=== PATIENT | male | born 1975 | race Asian ===

== ENCOUNTER 2024-09-20 05:28 | Inpatient (IN) | payer OTHER ==
[2024-09-20] VITALS (11 sets, daily range): BP systolic 104–132; BP diastolic 65–85; PULSE 71–97; RESP 14–18; TEMP 97.6–98.6; O2SAT 94–97
[~2024-09-20] VITALS: Ht 165.1 cm; Wt 75.0 kg
[2024-09-20 07:26] LABS: BASOPHILS % (AUTO) 0.1 % (0-1); EOSINOPHILS % (AUTO) 0 % (0-6); HEMATOCRIT 44.6 % (42.0-52.0); HEMOGLOBIN 14.9 g/dl (14.0-17.9); LYMPHOCYTES # (AUTO) 0.2 X10'3 (1.1-4.8); LYMPHOCYTES % (AUTO) 3.9 % (21-51); MEAN CORPUSCULAR HEMOGLOBIN 30.7 PG (27.0-31.0); MEAN CORPUSCULAR HGB CONC 33.4 g/dL (33.0-36.5); MONOCYTES # (AUTO) 0.7 X10'3 (0-0.9); MONOCYTES % (AUTO) 10.5 % (2-12); NEUTROPHILS # (AUTO) 5.5 X10'3 (1.8-7.7); NEUTROPHILS % (AUTO) 85.5 % (42-75); PLATELET COUNT 178 X10'3 (140-440); RED BLOOD COUNT 4.85 X10'6 (4.70-6.10); RED CELL DISTRIBUTION WIDTH 12.9 % (11.5-14.5); WHITE BLOOD COUNT 6.4 X10'3 (4.5-11.0)
[2024-09-20] MEDS: acetaminophen 1,000mg/100ml IV 100 ML IV ONE (07:38)
[2024-09-20] MEDS: pantoprazole 40 MG vial IV STA (07:39)
[2024-09-20] MEDS ORDERED: acetaminophen 1,000mg/100ml IV 100 ML IV ONE (08:00)
[2024-09-20 08:08] LABS: ALBUMIN 3.8 G/DL (3.4-5.0); ANION GAP 10 (8-16); BLOOD UREA NITROGEN 10 MG/DL (7-18); CALCIUM 8.6 MG/DL (8.5-10.1); CHLORIDE 103 MMOL/L (99-107); CREATININE 0.91 MG/DL (0.60-1.10); GLUCOSE 154 MG/DL (70-104); MAGNESIUM 1.9 MG/DL (1.5-2.4); POTASSIUM 3.7 MMOL/L (3.5-5.1); SODIUM 139 MMOL/L (135-145); TOTAL CARBON DIOXIDE 25.6 MMOL/L (24-32); eCRCL 84 ML/MIN; eGFR 88 ML/MIN
[2024-09-20] MEDS ORDERED: magnesium sulf-water 4G/100mL 100 ML IV PRN (08:20)
[2024-09-20] MEDS ORDERED: HYDROmorphone inj. 0.5 MG/0.5 ML DISP.SYRIN IV PRN (08:20)
[2024-09-20] MEDS ORDERED: HYDROmorphone/PF 0.2 MG/ML SYRINGE IV PRN (08:20)
[2024-09-20] MEDS ORDERED: magnesium sulf-water 2g/50mL 50 ML IV PRN (08:20)
[2024-09-20] MEDS ORDERED: metoclopramide 5 mg/ml inj IV PRN (08:20)
[2024-09-20] MEDS ORDERED: potassium Cl 40MEQ/1/2NS 520ml 520 ML IV PRN (08:20)
[2024-09-20] MEDS ORDERED: mag hydrox/Alum hydrox/simeth 30ml oral suspension PO PRN (08:20)
[2024-09-20] MEDS ORDERED: potassium Cl 20 mEq SR tablet PO PRN ×2 (08:20)
[2024-09-20] MEDS ORDERED: magnesium hydroxide 30ml (MOM) UD suspension PO PRN (08:20)
[2024-09-20] MEDS ORDERED: magnesium Cl slow-release 64mg tablet PO PRN (08:20)
[2024-09-20] MEDS ORDERED: ondansetron/PF 4mg/2ml inj IV PRN (08:20)
[2024-09-20] MEDS: normal saline 1000ml 1,000 ML IV SCH (08:45)
[2024-09-20] MEDS: PERFLUTREN PROTEIN-A MICROSPHR (Optison) 0.22 MG/ML 3ML VIAL IV ONE (08:46)
[2024-09-20] MEDS ORDERED: fentaNYL/PF 50MCG/1 ML 2ML syringe ONE (10:05)
[2024-09-20] MEDS ORDERED: LIDOcaine 2% Viscous 15ml cup ONE (10:06)
[2024-09-20] MEDS ORDERED: MIDAZolam 1 MG/ML 5ML VIAL ONE (10:06)
[2024-09-20] MEDS ORDERED: simethicone 40mg/0.6ml oral drops 30ml ONE (10:13)
[2024-09-20] MEDS: diatr meglu/diatrizoate 30ml oral sol.-(3 dose) bottle PO SCH (15:15)
[2024-09-20] MEDS: acetaminophen 325mg tablet PO PRN (15:24)
[2024-09-20 15:33] LABS: HEMOGLOBIN A1C 6.2 % (4.5-6.2)
[2024-09-20 16:04] LABS: ALANINE AMINOTRANSFERASE 65 U/L (12-78); ALBUMIN/GLOBULIN RATIO 1.1 (1.1-1.5); ALKALINE PHOSPHATASE 79 IU/L (46-116); ASPARTATE AMINO TRANSFERASE 36 U/L (10-37); BILIRUBIN,DIRECT 0.2 MG/DL (0-0.3); BILIRUBIN,TOTAL 0.5 MG/DL (0.1-1.0); LIPASE 14 U/L (16-77); THYROID STIMULATING HORMONE 0.82 ulU/ml (0.34-4.50); TOTAL PROTEIN 7.2 G/DL (6.4-8.2)
[2024-09-20 18:45] LABS: BILIRUBIN,URINE NEGATIVE (Neg); CLARITY,URINE CLEAR (Clear); COLOR,URINE STRAW (Yellow); GLUCOSE, URINE NEGATIVE (Neg); KETONES,URINE NEGATIVE (Neg); LEUKOCYTE ESTERASE ,URINE NEGATIVE (Neg); NITRITES, URINE NEGATIVE (Neg); OCCULT BLOOD,URINE NEGATIVE (Neg); PH,URINE 6.5 (4.8-8.0); PROTEIN,URINE NEGATIVE (Neg); UROBILINOGEN,URINE 0.2 E.U/dL (0.2-1.0)
[2024-09-20 18:51] LABS: UA COLLECTION TYPE NON-SPECIFIED
[2024-09-20 18:56] LABS: URINE AMPHETAMINE SCREEN NEGATIVE (Neg); URINE BARBITUATE SCREEN NEGATIVE (Neg); URINE BENZODIAZEPINES SCREEN POSITIVE (Neg); URINE CANNABINOID SCREEN NEGATIVE (Neg); URINE COCAINE SCREEN NEGATIVE (Neg); URINE METHADONE SCREEN NEGATIVE (Neg); URINE OPIATE SCREEN POSITIVE (Neg); URINE PHENCYCLIDINE SCREEN NEGATIVE (Neg)
[2024-09-20] MEDS: K and/or MAG REPLACEMENT MC SCH (20:00)
[2024-09-20] MEDS: docusate sod 100mg capsule PO SCH (20:00)
[2024-09-20] MEDS: pantoprazole 40 MG vial IV SCH (20:15)
[2024-09-20] MEDS: acetaminophen 325mg tablet PO ONE (22:08)
[2024-09-21 06:34] VITALS: BP 111/71; PULSE 80; RESP 16; TEMP 98; O2SAT 97
[2024-09-21 07:26] LABS: BASOPHILS % (AUTO) 0.4 % (0-1); HEMOGLOBIN 14.3 g/dl (14.0-17.9); LYMPHOCYTES # (AUTO) 1.7 X10'3 (1.1-4.8); LYMPHOCYTES % (AUTO) 39.6 % (21-51); MEAN CORPUSCULAR HEMOGLOBIN 30.9 PG (27.0-31.0); MEAN CORPUSCULAR HGB CONC 33.3 g/dL (33.0-36.5); MEAN CORPUSCULAR VOLUME 92.9 FL (78-98); MEAN PLATELET VOLUME 9.6 FL (7.4-10.4); MONOCYTES # (AUTO) 0.6 X10'3 (0-0.9); MONOCYTES % (AUTO) 14.8 % (2-12); NEUTROPHILS # (AUTO) 1.9 X10'3 (1.8-7.7); NEUTROPHILS % (AUTO) 44.2 % (42-75); PLATELET COUNT 168 X10'3 (140-440); RED BLOOD COUNT 4.63 X10'6 (4.70-6.10); RED CELL DISTRIBUTION WIDTH 12.9 % (11.5-14.5); WHITE BLOOD COUNT 4.2 X10'3 (4.5-11.0)
[2024-09-21 07:39] LABS: ANION GAP 8 (8-16); CHLORIDE 109 MMOL/L (99-107); GLUCOSE 96 MG/DL (70-104); SODIUM 143 MMOL/L (135-145); TOTAL CARBON DIOXIDE 26.4 MMOL/L (24-32)
[2024-09-21 07:40] LABS: ALANINE AMINOTRANSFERASE 65 U/L (12-78); ALBUMIN 3.3 G/DL (3.4-5.0); ALKALINE PHOSPHATASE 72 IU/L (46-116); ASPARTATE AMINO TRANSFERASE 65 U/L (10-37); BILIRUBIN,TOTAL 0.6 MG/DL (0.1-1.0); BLOOD UREA NITROGEN 11 MG/DL (7-18); BUN/CREATININE RATIO 11.1 (10.0-20.0); CALCIUM 8.1 MG/DL (8.5-10.1); CREATININE 0.99 MG/DL (0.60-1.10); TOTAL PROTEIN 6.5 G/DL (6.4-8.2); eCRCL 78 ML/MIN; eGFR 80 ML/MIN
[2024-09-21 10:00] VITALS: BP 137/89; PULSE 69; RESP 16; TEMP 97.8; O2SAT 98
[2024-09-21 13:40] VITALS: BP 132/84; PULSE 87; RESP 14; TEMP 97.9; O2SAT 98
[2024-09-21 13:42] VITALS: RESP 14
[2024-09-21] MEDS: FLU VACC TS2024-25(6MOS UP)/PF 45 MCG/0.5 ML SYRINGE IMVAC ONE (13:54)
[2024-09-21] MEDS ORDERED: EZET10TA48 PO (14:14)
[2024-09-21] MEDS ORDERED: ATOR40TA72 PO (14:14)
[2024-09-21] MEDS ORDERED: OMEP20CA16 (14:14)
[2024-09-21] MEDS ORDERED: ASPI-1265 PO (14:14)
[2024-09-21 18:00] VITALS: BP 133/85; PULSE 81; RESP 16; TEMP 98.4; O2SAT 98
[2024-09-21] MEDS ORDERED: pantoprazole 40 MG vial IV SCH (21:15)
[2024-09-21] MEDS: ezetimibe 10mg tablet PO SCH (21:15)
[2024-09-21] MEDS: Melatonin 3mg tablet PO ONE (21:37)
[2024-09-21 22:00] VITALS: BP 120/72; PULSE 62; RESP 13; TEMP 98.2; O2SAT 97
[2024-09-21] MEDS: atorvastatin 20mg tablet PO SCH (22:10)
[2024-09-21] MEDS: lactobacillus rhamnosus 10,000 MMU CELLS/CAPSULE PO SCH (22:10)
[2024-09-21] MEDS: aspirin 81mg, enteric-coated 1 TAB TABLET.DR PO SCH (22:10)
[2024-09-22 06:00] VITALS: BP 118/69; PULSE 85; RESP 13; TEMP 98.3; O2SAT 99
[2024-09-22 06:06] LABS: BASOPHILS % (AUTO) 0.4 % (0-1); EOSINOPHILS # (AUTO) 0.1 X10'3 (0-0.9); EOSINOPHILS % (AUTO) 1.3 % (0-6); HEMATOCRIT 40.9 % (42.0-52.0); LYMPHOCYTES # (AUTO) 1.8 X10'3 (1.1-4.8); LYMPHOCYTES % (AUTO) 41.7 % (21-51); MEAN CORPUSCULAR HEMOGLOBIN 31.4 PG (27.0-31.0); MEAN CORPUSCULAR HGB CONC 34.1 g/dL (33.0-36.5); MONOCYTES # (AUTO) 0.5 X10'3 (0-0.9); MONOCYTES % (AUTO) 10.8 % (2-12); NEUTROPHILS % (AUTO) 45.8 % (42-75); PLATELET COUNT 183 X10'3 (140-440); RED BLOOD COUNT 4.45 X10'6 (4.70-6.10); RED CELL DISTRIBUTION WIDTH 12.5 % (11.5-14.5); WHITE BLOOD COUNT 4.4 X10'3 (4.5-11.0)
[2024-09-22 06:46] LABS: ALANINE AMINOTRANSFERASE 75 U/L (12-78); ALBUMIN 3.4 G/DL (3.4-5.0); ALBUMIN/GLOBULIN RATIO 1.1 (1.1-1.5); ALKALINE PHOSPHATASE 71 IU/L (46-116); ANION GAP 6 (8-16); ASPARTATE AMINO TRANSFERASE 63 U/L (10-37); BILIRUBIN,TOTAL 0.5 MG/DL (0.1-1.0); BLOOD UREA NITROGEN 9 MG/DL (7-18); BUN/CREATININE RATIO 9.4 (10.0-20.0); CALCIUM 8.2 MG/DL (8.5-10.1); CHLORIDE 107 MMOL/L (99-107); CREATININE 0.96 MG/DL (0.60-1.10); GLUCOSE 102 MG/DL (70-104); POTASSIUM 3.5 MMOL/L (3.5-5.1); SODIUM 142 MMOL/L (135-145); TOTAL PROTEIN 6.6 G/DL (6.4-8.2); eCRCL 80 ML/MIN; eGFR 83 ML/MIN
[2024-09-22 09:25] LABS: CHOL/HDL RATIO 2.7 (0.00-4.99); CHOLESTEROL 116 MG/DL (0-200); HDL CHOLESTEROL 43 MG/DL (35-60); LDL CHOLESTEROL 56 MG/DL (50-100); TRIGLYCERIDES 78 MG/DL (20-135)
[2024-09-22 10:00] VITALS: RESP 15; O2SAT 94
[2024-09-22 11:21] VITALS: BP 131/77; PULSE 81; RESP 15; TEMP 97.6; O2SAT 94
[2024-09-22] MEDS ORDERED: PANT40TA54 PO (12:16)
[2024-09-22] MEDS ORDERED: LACT1CAP74 PO (12:20)
== END 2024-09-22 13:10 | disposition home or self-care (01) | DRG 381 ==
LOC: ER 05:29 → ED HOLD 08:15 → UNDOADMIN 08:19 → ED HOLD 10:37 → ORTHO 4S 10:37
PROVIDERS: ADMIT Family Medicine; ATTEND Family Medicine
PROC: 0DJ08ZZ Inspection of Upper Intestinal Tract, Via Natural or Artificial Opening Endoscopic (ICD-10-PCS; principal; 2024-09-20)
DX: K31.1 Adult hypertrophic pyloric stenosis (principal); C16.9 Malignant neoplasm of stomach, unspecified; K29.60 Other gastritis without bleeding; K25.9 Gastric ulcer, unspecified as acute or chronic, without hemorrhage or perforation; F17.210 Nicotine dependence, cigarettes, uncomplicated; I25.10 Atherosclerotic heart disease of native coronary artery without angina pectoris; K21.00 Gastro-esophageal reflux disease with esophagitis, without bleeding; K52.89 Other specified noninfective gastroenteritis and colitis; F10.90 Alcohol use, unspecified, uncomplicated; Z79.899 Other long term (current) drug therapy; Z79.82 Long term (current) use of aspirin
CPT/HCPCS: 36415; 43235; 71045; 74176; 80048; 80053; 80061; 80076; 80305; 81003; 83036; 83605; 83690; 83735; 84145; 84443; 85025; 85651; 86038; 87040; 87045; 87046; 87081; 87324; 87449; 89055; 93005; 93306; 99152; 99285; G0378; J0131; J2250; J2470; J3010; J7030; Q9963